=== PATIENT | female | born 1935 | race Caucasian/White ===

== ENCOUNTER 2016-11-03 13:14 | Day surgery (SDC) | payer OTHER ==
[~2016-11-03 13:14] MED LIST: ARTIFICIAL TEAR15 M1 BOTH EYES; ASCORBIC ACID500 M3 PO; ASPIR-LOW81 MG PO; AUGMENTIN500 MG PO; AZITHROMYCIN250 MG PO; AZOR; AZOR 5/40 MG1 TABLET PO; BENICAR40 MG PO; BISOPROLOL FUMA10 MG PO; BISOPROLOL/HCTZ; CALCIUM 500 MG1 EACH PO; CARDIZEM CD360 MG PO; CARDIZEM60 MG PO; CELEBREX; COLACE100 MG PO; DIPHEDRYL25 M3 PO; ELIQUIS5 MG PO; FUROSEMIDE20 MG PO; HYTRIN1 MG PO; IRON325 MG PO; LO-DOSE ASPIRIN81 M2 PO; LOW DOSE ASPIRI81 M1 PO; LUCENTIS0.3 MG/0.0 IO; NEXIUM 24HR20 MG PO; NORVASC5 MG PO; OXYBUTYNIN CHLOR5 MG PO; PREDNISONE20 MG PO; PROTONIX40 MG PO; SPIRIVA RESPIMAT4 G1 IH; SYMBICORT60 INHALA1 IH; SYMBICORT60 INHALAT IH; TYLENOL REGULA325 MG PO; VENTOLIN HFA18 GM IH; VITAMIN E400 UNIT PO; XARELTO20 MG PO; ZIAC 10/6.251 TABLET PO
== END 2016-11-03 16:05 | disposition home or self-care (01) ==
LOC: CATH 13:14
PROC: 5A2204Z Restoration of Cardiac Rhythm, Single (ICD-10-PCS; principal; 2016-11-03)
DX: I48.1 Persistent atrial fibrillation (principal); I10 Essential (primary) hypertension; Z86.73 Personal history of transient ischemic attack (TIA), and cerebral infarction without residual deficits; I34.0 Nonrheumatic mitral (valve) insufficiency; Z79.82 Long term (current) use of aspirin
CPT/HCPCS: 93005; J2250

== ENCOUNTER 2017-01-06 13:37 | Day surgery (SDC) | payer OTHER ==
[~2017-01-06] VITALS: Ht 162.6 cm; Wt 83.0 kg
[~2017-01-06 13:37] MED LIST changes: +AMIODARONE HCL200 MG PO; +CANDESARTAN CILE4 MG PO; +PREDNISONE10 MG PO
[2017-01-06] MEDS ORDERED: DILTIAZEM 24HR180 MG PO (14:15)
== END 2017-01-06 16:45 | disposition home or self-care (01) ==
LOC: CATH 13:37
PROC: 5A2204Z Restoration of Cardiac Rhythm, Single (ICD-10-PCS; principal; 2017-01-06)
DX: I48.1 Persistent atrial fibrillation (principal); I10 Essential (primary) hypertension; J44.9 Chronic obstructive pulmonary disease, unspecified; Z79.82 Long term (current) use of aspirin; Z79.01 Long term (current) use of anticoagulants
CPT/HCPCS: 93005